=== PATIENT | female | born 1965 | race Caucasian/White ===

== ENCOUNTER → 2016-10-08 | Day surgery (SDC) | payer OTHER ==
[~2016-10-08] MED LIST: BACTRIM DS TABL1 TA1 PO; BENADRYL IV; DOCUSATE SODIU100 MG PO; PERCODAN TABLET1 TA1 PO; PHENERGAN25 MG; PYRIDIUM PO
--- NOTE | ~2016-10-08 | OR ---
Unit #: [id number] #: [id number] Patient: REY VAZQUEZ [id number] [address] [address] [id number] MR#: [id number] NAME: REY VAZQUEZ ROOM: Date of Procedure: 10/08/2016 Admission Date: 10/08/2016 Surgeon: Nate Nagel M.D. : 1965 Attending Physician: Nate Nagel M.D. Primary Care Physician: Rakesh Serrato M.D. OPERATIVE REPORT JOB NOTE: CC: PRIMARY CARE DOCTOR PREOPERATIVE DIAGNOSIS Interstitial cystitis. POSTOPERATIVE DIAGNOSIS Interstitial cystitis. PROCEDURES PERFORMED Cystoscopy and hydrodistention. ANESTHESIA General. DESCRIPTION OF PROCEDURE After informed consent, she was taken to the cystoscopy suite, placed on general anesthetic, positioned in lithotomy. Her vagina and perineum were prepped and draped in the usual sterile fashion. Cystoscopy was performed showing a normal urethra and bladder. The entire bladder was inspected. There were no tumors, no stones, no diverticula. She had normal left and right ureteral orifices. The bladder was distended on 3 occasions. The volumes obtained were 700 mL, 800 mL, and 800 mL respectively. Repeat inspection showed no injury to the bladder. The entire bladder was inspected again. Her bladder was drained. Lidocaine jelly was placed inside the bladder and urethra for local anesthetic. She will be discharged home. Return to see me as an outpatient. She tolerated the procedure well. Dictated by... Preston Anaya/ranjith TD: 10/08/2016 16:57 JOB #: [id number] Unit #: [id number] #: [id number] Patient: REY VAZQUEZ OPERATIVE REPORT Page 1 of 1 X Nate Nagel MD X PROCEDURE OPERATIVE NOTE
== END | disposition home or self-care (01) ==
LOC: CSUR 09-05 16:30
DX: N30.10 Interstitial cystitis (chronic) without hematuria (principal); F17.210 Nicotine dependence, cigarettes, uncomplicated; M19.90 Unspecified osteoarthritis, unspecified site; M81.0 Age-related osteoporosis without current pathological fracture; Z86.718 Personal history of other venous thrombosis and embolism; Z88.6 Allergy status to analgesic agent; Z90.49 Acquired absence of other specified parts of digestive tract; Z90.710 Acquired absence of both cervix and uterus; Z98.890 Other specified postprocedural states
CPT/HCPCS: 82947; J0690; J2250; J2405